=== PATIENT | male | born 1985 | race Caucasian/White ===

== ENCOUNTER 2016-08-21 02:34 | Emergency (ER) | payer OTHER ==
[2016-08-21 02:41] VITALS: TEMP 98
[2016-08-21] MEDS ORDERED: PROPARACAINE 0.5% OPHTH DROPS 15 ML BTL RIGHT EYE STA (03:03)
[2016-08-21] MEDS ORDERED: CIPROFLOXACIN 0.3% OPHTH SOLN 2.5 ML BTL RIGHT EYE STA (03:21)
--- NOTE | 2016-08-21 03:23 | ED ---
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 Patient reports it is a jerzy of paint or metal. He states he can see it in his eye. Patient states that he used to wear contacts, but does not anymore. Patient states that for the past 8 hours his eye has been red and inflamed. Patient states he has no changes in vision. Tetanus shot is up to date. Patient states that he has had things go in his eye before. Patient denies fever, chills , headache, chest pain, shortness of breath, nausea, vomiting, abodminal pain. - Related Data Home Medications Medication Instructions Recorded Confirmed No Known Home Medications [No 08/21/16 08/21/16 Known Home Medications] Allergies Allergy/AdvReac Type Severity Reaction Status Date / Time No Known Allergies Allergy Verified 08/21/16 02:41 Review of Systems ROS Statement: Those systems with pertinent positive or pertinent negative responses have been documented in the HPI. ROS Other: All systems not noted in ROS Statement are negative. Past Medical History Past Medical History: No Reported History History of Any Multi-Drug Resistant Organisms: None Reported Past Surgical History: Cholecystectomy Past Psychological History: No Psychological Hx Reported Smoking Status: Current every day smoker Past Alcohol Use History: None Reported Past Drug Use History: None Reported General Exam - General Exam Comments Initial Comments: Well apperiang pleasant 31 year old male, no distress. Limitations: no limitations General appearance: alert, in no apparent distress Head exam: Present: atraumatic, normocephalic, normal inspection Eye exam: Present: normal appearance, PERRL, EOMI, conjunctival injection ( right eye conjunctival injection. White speck in center of left eye, consistent with paint chip. ). Absent: scleral icterus, periorbital swelling ENT exam: Present: normal exam, mucous membranes moist Neck exam: Present: normal inspection. Absent: tenderness, meningismus, lymphadenopathy Respiratory exam: Present: normal lung sounds bilaterally. Absent: respiratory distress, wheezes, rales, rhonchi, stridor Cardiovascular Exam: Present: regular rate, normal rhythm, normal heart sounds. Absent: systolic murmur, diastolic murmur, rubs, gallop, clicks GI/Abdominal exam: Present: soft, normal bowel sounds. Absent: distended, tenderness, guarding, rebound, rigid Extremities exam: Present: normal inspection, full ROM, normal capillary refill. Absent: tenderness, pedal edema, joint swelling, calf tenderness Back exam: Present: normal inspection Neurological exam: Present: alert, oriented X3, CN II-XII intact Psychiatric exam: Present: normal affect, normal mood Skin exam: Present: warm, dry, intact, normal color. Absent: rash Course Vital Signs 08/21/16 08/21/16 02:39 04:15 Temperature 98 F 98 F Pulse Rate 79 76 Respiratory 16 18 Rate Blood Pressure 139/76 124/60 O2 Sat by Pulse 99 99 Oximetry Medical Decision Making - Medical Decision Making Patient is a 31 year old male with chief compliant of foreign body in right eye. Fluorescien eye exam preformed and white piece of paint is removed with cotton swab. No evidence of corneal abrasion. Discussed avoid contact wear, and wearing safety goggles at work. Patient reports relief, and will be placed on ciprofloxacin eye drops. Discussed follow up with opthalmologist if symptoms continue to persist. Patient agrees with treatment plan and will comply. Disposition Clinical Impression: Foreign body, eye Disposition: HOME SELF-CARE Condition: Good Instructions: Eye Foreign Body (ED) Additional Instructions: Apply antibiotic drops every 4 hours to affected eye. Follow up with plate cutter if symptoms continue persist after one to 2 days. Return to emergency Department if any alarming signs or symptoms occur. Referrals: Rizwana Alex MD [STAFF PHYSICIAN] - 1-2 days Bessie Valadez MD [STAFF PHYSICIAN] - 1-2 days Time of Disposition: 03:21
[2016-08-21 04:16] VITALS: BP 124/60; PULSE 76; RESP 18
== END 2016-08-21 04:16 | disposition home or self-care (01) ==
LOC: MERGE 02:34 → EC 02:34
DX: T15.91XA Foreign body on external eye, part unspecified, right eye, initial encounter (principal); X58.XXXA Exposure to other specified factors, initial encounter; F17.200 Nicotine dependence, unspecified, uncomplicated
CPT/HCPCS: 99283

== ENCOUNTER 2016-10-26 06:10 | Emergency (ER) | payer OTHER ==
[2016-10-26 06:15] VITALS: RESP 18
[2016-10-26] MEDS ORDERED: PROPARACAINE 0.5% OPHTH DROPS 15 ML BTL BOTH EYES STA (06:42)
[2016-10-26] MEDS ORDERED: ERYTHROMYCIN 5 MG/GM OPHTH OINT 3.5 GM TUBE BOTH EYES STA (07:46)
--- NOTE | 2016-10-26 07:50 | ED ---
Eye Problem HPI - General Chief complaint: Eye Problems Stated complaint: Eye Injury Time Seen by Provider: 10/26/16 06:59 Source: patient Mode of arrival: ambulatory Limitations: no limitations - History of Present Illness Initial comments: This patient is a 31-year-old man who presents to be evaluated for burning pain to both eyes. 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 The patient states this is identical to previous episodes of welder oxyhydrogen's flash that he has had. Denies change in his vision. He has had some tearing. States his tetanus shot is up-to-date MD chief complaint: eye pain, eye redness -: hour(s) Onset Description: gradual Location: both eyes Place: home If Injury: UV exposure Eye Symptoms: burning Severity: severe If Pain, Quality: burning Consistency: constant Associated Symptoms: none - Related Data Home Medications Medication Instructions Recorded Confirmed No Known Home Medications [No 08/21/16 08/21/16 Known Home Medications] Previous Rx's Medication Instructions Recorded HYDROcodone/APAP 5-325MG [Shelby 1 each PO Q6HR PRN #20 tab 05/17/14 5-325] Allergies Allergy/AdvReac Type Severity Reaction Status Date / Time No Known Allergies Allergy Verified 10/26/16 06:12 Review of Systems ROS Statement: Those systems with pertinent positive or pertinent negative responses have been documented in the HPI. ROS Other: All systems not noted in ROS Statement are negative. Constitutional: Denies: fever Eyes: Reports: as per HPI, eye pain, eye discharge. Denies: vision change Respiratory: Denies: cough Neurological: Denies: headache Past Medical History Past Medical History: No Reported History History of Any Multi-Drug Resistant Organisms: None Reported Past Surgical History: Cholecystectomy Past Psychological History: No Psychological Hx Reported Smoking Status: Current every day smoker Past Alcohol Use History: None Reported Past Drug Use History: Marijuana General Exam Limitations: no limitations General appearance: alert, in no apparent distress Head exam: Present: atraumatic Eye exam: Present: PERRL, EOMI, conjunctival injection, other (There is some punctate uptake with forcing staining). Absent: scleral icterus, nystagmus, periorbital swelling, periorbital tenderness ENT exam: Present: normal oropharynx Skin exam: Present: warm, dry, intact, normal color. Absent: rash Course Vital Signs 10/26/16 06:13 Temperature 96.9 F L Pulse Rate 77 Respiratory 18 Rate Blood Pressure 125/71 O2 Sat by Pulse 99 Oximetry Disposition Clinical Impression: Welders' keratitis Disposition: HOME SELF-CARE Condition: Good Instructions: Corneal Flash Villalba (ED) Referrals: Marina Millard MD [Primary Care Provider] - 1-2 days Bessie Valadez MD [STAFF PHYSICIAN] - 1-2 days
[2016-10-26 08:13] VITALS: BP 112/61; PULSE 78; TEMP 97
== END 2016-10-26 08:12 | disposition home or self-care (01) ==
LOC: EC 06:10
DX: H16.133 Photokeratitis, bilateral (principal); F17.200 Nicotine dependence, unspecified, uncomplicated; W89.0XXA Exposure to welding light (arc), initial encounter; Y93.89 Activity, other specified; Y92.009 Unspecified place in unspecified non-institutional (private) residence as the place of occurrence of the external cause
CPT/HCPCS: 99283

== ENCOUNTER 2016-12-04 13:17 | Emergency (ER) | payer OTHER ==
[2016-12-04 13:22] VITALS: RESP 18
[2016-12-04] MEDS ORDERED: FAMOTIDINE 20 MG/2 ML VIAL IV STA (13:22)
[2016-12-04] MEDS ORDERED: methylPREDNISolone SOD SUCCI 125 MG/2 ML VIAL IV STA (13:22)
[2016-12-04] MEDS ORDERED: diphenhydrAMINE 50 MG/ML 1 ML VIAL IVP STA (13:22)
[2016-12-04] MEDS ORDERED: SODIUM CHLORIDE 0.9% 1,000 ML IV STA ×2 (13:23→13:24)
[2016-12-04] MEDS ORDERED: IPRATROPIUM-ALBUTEROL 3 ML NEB INHALATION STA (13:24)
[2016-12-04] MEDS ORDERED: EPINEPHrine 1 MG/ML 1 ML AMP IM STA (13:30)
[2016-12-04 14:34] VITALS: PULSE 85
[2016-12-04 15:25] VITALS: BP 105/53
--- NOTE | 2016-12-04 15:25 | ED ---
Allergic Reaction HPI - General Chief complaint: Allergic Reaction Stated complaint: Allergic Reaction/Bee Time Seen by Provider: 12/04/16 13:22 Source: patient Mode of arrival: ambulatory Limitations: no limitations - History of Present Illness Initial Comments: This 31-year-old white male presents with a complaint of an ALLERGIC reaction due to a bee sting. This occurred a couple hours prior to arrival. He states that he was stung right above his right eyebrow. He developed diffuse rash throughout his body. He denies any syncope or presyncope. He states that he took his EpiPen which has been for 4 years shortly prior to coming in. He has a rash with diffuse erythema throughout as well as some pruritus. He denies any throat tightness or difficulty in breathing. He states that he has had previous significant reactions to bee stings in the past. No other complaints or modifying factors. - Related Data Home Medications Medication Instructions Recorded Confirmed Acyclovir [Zovirax] 800 mg PO DAILY 12/04/16 12/04/16 Previous Rx's Medication Instructions Recorded EPINEPHrine [Epipen 2-Alfonso] 0.3 mg IJ ONCE PRN #1 auto.injct 12/04/16 Famotidine [Pepcid] 20 mg PO BID #6 tablet 12/04/16 diphenhydrAMINE HCL [Benadryl] 1 - 2 mg PO Q6H PRN #20 tab 12/04/16 predniSONE 20 mg PO BID #6 tab 12/04/16 Allergies Allergy/AdvReac Type Severity Reaction Status Date / Time No Known Allergies Allergy Verified 12/04/16 14:07 Review of Systems ROS Statement: Those systems with pertinent positive or pertinent negative responses have been documented in the HPI. ROS Other: All systems not noted in ROS Statement are negative. Past Medical History Past Medical History: No Reported History History of Any Multi-Drug Resistant Organisms: None Reported Past Surgical History: Cholecystectomy Past Psychological History: No Psychological Hx Reported Smoking Status: Current every day smoker Past Alcohol Use History: None Reported Past Drug Use History: Marijuana General Exam - General Exam Comments Initial Comments: GENERAL: The patient is well nourished and well hydrated. VITAL SIGNS: Heart rate, blood pressure, respiratory rate reviewed as recorded in nurse's notes. EYES: Pupils are round and reactive. Extraocular movements are intact. No conjunctival / lid redness or swelling. ENT: No external evidence of injury, swelling, or ecchymosis. Airway is patent. Throat is clear. NECK: Nontender. No swelling or evidence of injury. No subcutaneous emphysema. Trachea is midline. No thyroid mass. HEART: Regular rate and rhythm. Good peripheral pulses. LUNGS/CHEST: Breath sounds clear and equal bilaterally. No rales, rhonchi, or wheezes. No ecchymosis, subcutaneous emphysema, or tenderness. ABDOMEN: Abdomen soft without tenderness. No palpable masses or organomegaly. No peritoneal signs. No abdominal wall swelling or ecchymosis. EXTREMITIES: No extremity tenderness. Normal muscle tone and function. No thoracolumbar tenderness. NEUROLOGIC: Sensation is grossly intact. Cranial nerve exam reveals face is symmetrical, tongue is midline, speech is clear. SKIN: There is a diffuse erythematous rash throughout his body PSYCHIATRIC: Alert and oriented. Appropriate behavior and judgment. Limitations: no limitations Course Vital Signs 12/04/16 12/04/16 12/04/16 13:19 13:49 13:59 Temperature 97.0 F L Pulse Rate 108 H 93 85 Respiratory 18 18 Rate Blood Pressure 140/63 101/55 O2 Sat by Pulse 96 99 Oximetry 12/04/16 12/04/16 12/04/16 14:06 14:33 15:24 Temperature Pulse Rate 87 85 85 Respiratory 18 18 Rate Blood Pressure 106/54 105/53 O2 Sat by Pulse 95 95 Oximetry Medical Decision Making - Medical Decision Making The patient was seen and examined. An IV was started and he is hydrated. He received IV Solu-Medrol, IV Benadryl, and IV Pepcid. He also received a DuoNeb breathing treatment and intramuscular epinephrine. He is sleeping on recheck and in no distress. His rash has significantly improved there is only a scant remainder of the rash. There is no difficulty in breathing on recheck. It is felt as though he is stable for discharge home. He is counseled regarding his diagnosis and return parameters in detail leaves in no distress. Disposition Clinical Impression: Allergic reaction, Bee sting, Anaphylactic reaction Disposition: HOME SELF-CARE Condition: Good Instructions: Insect Bite or Sting (ED), Anaphylaxis (ED) Prescriptions: diphenhydrAMINE HCL [Benadryl] 1 - 2 mg PO Q6H PRN #20 tab PRN Reason: Rash EPINEPHrine [Epipen 2-Alfonso] 0.3 mg IJ ONCE PRN #1 auto.injct PRN Reason: bee sting/anaphylaxis Famotidine [Pepcid] 20 mg PO BID #6 tablet predniSONE 20 mg PO BID #6 tab Referrals: Marina Millard MD [Primary Care Provider] - 1-2 days Time of Disposition: 15:36
[2016-12-04 15:51] VITALS: TEMP 97.8
== END 2016-12-04 15:51 | disposition home or self-care (01) ==
LOC: EC 13:17
DX: T63.441A Toxic effect of venom of bees, accidental (unintentional), initial encounter (principal); F17.200 Nicotine dependence, unspecified, uncomplicated; Z79.899 Other long term (current) drug therapy
CPT/HCPCS: 99283; 96374; 96375 ×2; 96361 ×2; 96372; 94640; J0171; J1200; J2930

== ENCOUNTER 2017-10-14 06:27 | Emergency (ER) | payer OTHER ==
[2017-10-14 06:33] VITALS: BP 144/80; PULSE 70; RESP 16; TEMP 98
[2017-10-14] MEDS ORDERED: IBUPROFEN 800 MG TAB PO STA (06:51)
[2017-10-14] MEDS ORDERED: PENICILLIN VK 500MG STARTER 4 TAB BTL PO STA (06:51)
[2017-10-14] MEDS ORDERED: DEXAMETHASONE SOD PHOSPHATE 10 MG/ML 1 ML VIAL IM STA (06:51)
[2017-10-14] MEDS ORDERED: ACETAMINOPHEN TAB 500 MG TAB PO STA (06:51)
[2017-10-14] MEDS ORDERED: PENICILLIN V POTASSIUM 250 MG TAB PO STA (06:51)
--- NOTE | 2017-10-14 06:53 | ED ---
General Adult HPI - General Chief complaint: Dental/Oral Stated complaint: ENT Time Seen by Provider: 10/14/17 06:36 Source: patient, RN notes reviewed, old records reviewed Limitations: no limitations - History of Present Illness Initial comments: This is a 32-year-old male the ER for evasive dental pain. Patient has history of severe dental caries. Patient has no modifying factors for pain, does have mild swelling to the anterior lip. Patient states he does have a dentist will follow-up this week. But he states the infection and the pain is getting out of control. No modifying factors for pain. Patient states he does want return to work - Related Data Home Medications Medication Instructions Recorded Confirmed Acyclovir [Zovirax] 800 mg PO DAILY 12/04/16 12/04/16 Previous Rx's Medication Instructions Recorded EPINEPHrine [Epipen 2-Alfonso] 0.3 mg IJ ONCE PRN #1 auto.injct 12/04/16 Famotidine [Pepcid] 20 mg PO BID #6 tablet 12/04/16 diphenhydrAMINE HCL [Benadryl] 1 - 2 mg PO Q6H PRN #20 tab 12/04/16 predniSONE 20 mg PO BID #6 tab 12/04/16 Naproxen [Naprosyn] 500 mg PO Q12HR PRN #30 tab 10/14/17 Penicillin V Potassium [Pen Vee K] 500 mg PO QID #40 tablet 10/14/17 Allergies Allergy/AdvReac Type Severity Reaction Status Date / Time No Known Allergies Allergy Verified 10/14/17 06:33 Review of Systems ROS Statement: Those systems with pertinent positive or pertinent negative responses have been documented in the HPI. ROS Other: All systems not noted in ROS Statement are negative. Past Medical History Past Medical History: No Reported History History of Any Multi-Drug Resistant Organisms: None Reported Past Surgical History: Cholecystectomy Past Psychological History: No Psychological Hx Reported Smoking Status: Current every day smoker Past Alcohol Use History: None Reported Past Drug Use History: Marijuana General Exam Limitations: no limitations General appearance: alert, in no apparent distress Head exam: Present: atraumatic, normocephalic, normal inspection Eye exam: Present: normal appearance, PERRL, EOMI. Absent: scleral icterus, conjunctival injection, periorbital swelling ENT exam: Present: normal exam, mucous membranes moist Neck exam: Present: normal inspection. Absent: tenderness, meningismus, lymphadenopathy Respiratory exam: Present: normal lung sounds bilaterally. Absent: respiratory distress, wheezes, rales, rhonchi, stridor Cardiovascular Exam: Present: regular rate, normal rhythm, normal heart sounds. Absent: systolic murmur, diastolic murmur, rubs, gallop, clicks GI/Abdominal exam: Present: soft, normal bowel sounds. Absent: distended, tenderness, guarding, rebound, rigid Extremities exam: Present: normal inspection, full ROM, normal capillary refill. Absent: tenderness, pedal edema, joint swelling, calf tenderness Back exam: Present: normal inspection Neurological exam: Present: alert, oriented X3, CN II-XII intact Psychiatric exam: Present: normal affect, normal mood Skin exam: Present: warm, dry, intact, normal color. Absent: rash Course Vital Signs 10/14/17 06:30 Temperature 98 F Pulse Rate 70 Respiratory 16 Rate Blood Pressure 144/80 O2 Sat by Pulse 97 Oximetry Medical Decision Making - Medical Decision Making 32 male the ER with positive dental infection history of severe dental caries, will follow-up with a dentist in the future Disposition Clinical Impression: Dental abscess, Toothache Disposition: ADMITTED IP TO THIS HOSP Condition: Good Instructions: Dental Abscess (ED), Dental Caries (ED) Prescriptions: Naproxen [Naprosyn] 500 mg PO Q12HR PRN #30 tab PRN Reason: Pain Penicillin V Potassium [Pen Vee K] 500 mg PO QID #40 tablet Is patient prescribed a controlled substance at d/c from ED?: No Referrals: Marina Millard MD [Primary Care Provider] - 1-2 days
== END 2017-10-14 07:13 | disposition other institution (70) ==
LOC: EC 06:27
DX: K04.7 Periapical abscess without sinus (principal); F17.200 Nicotine dependence, unspecified, uncomplicated
CPT/HCPCS: 99283; 96372; J1100

== ENCOUNTER 2019-12-13 13:49 | Emergency (ER) | payer BC, OTHER ==
[2019-12-13 14:07] VITALS: BP 116/75; PULSE 80; RESP 18; TEMP 98.4
--- NOTE | 2019-12-13 14:58 | XR ---
Lumbar spine HISTORY: Trauma and pain 3 views the lumbar spine Lumbar vertebral bodies show preserved height, alignment, and bone mineralization. Disc spaces are ma intained with some mild disc height loss questioned at L3-4. Mild multilevel spondylosis is noted. Ap ical clips are present right upper quadrant. IMPRESSION: No fracture or subluxation. Mild degenerative disc disease.
[2019-12-13] MEDS ORDERED: ACET/COD 300 MG/30 MG STARTER PACK 6 TAB BTL PO STA (15:13)
--- NOTE | 2019-12-13 15:13 | ED ---
Back Pain HPI - General Chief Complaint: Back Pain/Injury Stated Complaint: Back Pain Time Seen by Provider: 12/13/19 14:25 Source: patient Limitations: no limitations - History of Present Illness Initial Comments: 34-year-old male presenting today for chief complaint of low back pain. Patient states about work he went to step up on a stair when he fell backwards onto a soft area of tubing he states he did not fall hard states he began experiencing low back pain since he experiences back pain that feels similar in the past. He states it began radiating somewhat down his right leg the next day. Patient denies any loss sensation weakness of the lower extremities he denies any loss of bowel bladder control urinary retention denies any fevers IV drug use or history of cancer. Patient denies any erectile dysfunction or numbness of the perineum. Patient has no additional complaints. Upon arrival patient ambulatory he does not appear in acute distress. - Related Data Home Medications Medication Instructions Recorded Confirmed Acyclovir [Zovirax] 800 mg PO DAILY 12/04/16 12/04/16 Previous Rx's Medication Instructions Recorded EPINEPHrine [Epipen 2-Alfonso] 0.3 mg IJ ONCE PRN #1 auto.injct 12/04/16 Famotidine [Pepcid] 20 mg PO BID #6 tablet 12/04/16 diphenhydrAMINE HCL [Benadryl] 1 - 2 mg PO Q6H PRN #20 tab 12/04/16 predniSONE [Deltasone] 20 mg PO BID #6 tab 12/04/16 Naproxen [Naprosyn] 500 mg PO Q12HR PRN #30 tab 10/14/17 Penicillin V Potassium [Pen Vee K] 500 mg PO QID #40 tablet 10/14/17 predniSONE 50 mg PO DAILY 3 Days #3 tab 12/13/19 Allergies Allergy/AdvReac Type Severity Reaction Status Date / Time No Known Allergies Allergy Verified 12/13/19 14:07 Review of Systems ROS Statement: Those systems with pertinent positive or pertinent negative responses have been documented in the HPI. ROS Other: All systems not noted in ROS Statement are negative. Past Medical History Past Medical History: No Reported History History of Any Multi-Drug Resistant Organisms: None Reported Past Surgical History: Cholecystectomy Past Psychological History: No Psychological Hx Reported Smoking Status: Current every day smoker Past Alcohol Use History: None Reported Past Drug Use History: Marijuana General Exam - General Exam Comments Initial Comments: General: The patient is awake and alert, in no distress, and does not appear acutely ill. Eye: Pupils are equal, round and reactive to light, extra-ocular movements are intact. No nystagmus. There is normal conjunctiva bilaterally. No signs of icterus. Cardiovascular: There is a regular rate and rhythm. No murmur, rub or gallop is appreciated. Respiratory: Lungs are clear to auscultation, respirations are non-labored, breath sounds are equal. No wheezes, stridor, rales, or rhonchi. Musculoskeletal: no skin changes. Atraumatic tenderness palpable over the lower lumbar spine. Some mild midline tenderness but mostly paravertebral. Normal ROM, of the lower extremity bilaterally. Negative straight leg raise bilaterally Strength 5/5 of the lower extremity bilaterally.. Sensation intact of the lower extremities including the saddle region. Refused rectal examination. +2/5 patellar DTR. Pulses equal bilaterally 2+. Ambulatory. Neurological: A&O x 3. CN II-XII intact grossly, There are no obvious motor or sensory deficits. Coordination appears grossly intact. Speech is normal. Skin: Skin is warm and dry and no rashes or lesions are noted. Psychiatric: Cooperative, appropriate mood & affect, normal judgment. Limitations: no limitations Course Vital Signs 12/13/19 14:05 Temperature 98.4 F Pulse Rate 80 Respiratory 18 Rate Blood Pressure 116/75 O2 Sat by Pulse 98 Oximetry Medical Decision Making - Medical Decision Making 34-year-old male presented for low back pain radiates down right leg. X-ray negative this patient's history of what he described as a "soft fall" patient neurovascularly intact refuse rectal examination denies any weakness or sensation deficits of the lower extremities denies urinary or bowel changes. Patient will be treated symptomatically and recommended close PCP f/u. For persistent symptoms recommend outpatient MRI and orthopedic f/u wtih was provided. Patient discharged appearing well. Disposition Clinical Impression: Low back pain, Radiculopathy Disposition: HOME SELF-CARE Condition: Good Instructions (If sedation given, give patient instructions): Acute Low Back Pain (ED) Additional Instructions: Please use medication as discussed. Please follow-up with family doctor in the next 2 days. Recommend immediate return for leg weakness, loss of sensation of legs, inner thigh, erectile dysfunction, inability to urinate or loss of bowel control/bladder controll. Please return to emergency room if the symptoms increase or worsen or for any other concerns. Prescriptions: predniSONE 50 mg PO DAILY 3 Days #3 tab Is patient prescribed a controlled substance at d/c from ED?: No Referrals: Gerda Schmidt DO [Primary Care Provider] - 1-2 days [facility] [NON-STAFF] - 1-2 days Leelee Ambrosio DO [Doctor of Osteopathic Medicine] - 1-2 days Time of Disposition: 15:13
== END 2019-12-13 15:37 | disposition home or self-care (01) ==
LOC: EC 13:49
DX: M54.16 Radiculopathy, lumbar region (principal); F17.200 Nicotine dependence, unspecified, uncomplicated
CPT/HCPCS: 72100; 99283

== ENCOUNTER 2021-07-17 23:51 | Emergency (ER) | payer BC, OTHER ==
[2021-07-18 00:07] VITALS: BP 124/81; PULSE 84; RESP 19; TEMP 99.4
[2021-07-18 01:20] LABS: Basophils # (A) 0.1 k/uL (0-0.2); Basophils % (A) 1 %; Eosinophils # (A) 0.6 k/uL (0-0.7); Eosinophils % (A) 4 %; HCT 49.3 % (39.0-53.0); Lymphocytes # (A) 2.4 k/uL (1.0-4.8); Lymphocytes % (A) 16 %; MCH 28.9 pg (25.0-35.0); MCHC 32.4 g/dL (31.0-37.0); MCV 89.2 fL (80.0-100.0); Mean Platelet Volume 7.3; Monocytes # (A) 0.7 k/uL (0-1.0); Monocytes % (A) 5 %; Neutrophils # (A) 11.4 k/uL (1.3-7.7); Neutrophils % (A) 75 %; Platelet Count 252 k/uL (150-450); RBC 5.53 m/uL (4.30-5.90); RDW 13.3 % (11.5-15.5); WBC 15.3 k/uL (3.8-10.6)
[2021-07-18 01:29] LABS: ALT 26 U/L (4-49); AST 23 U/L (17-59); African American GFR (CKD) >90 (>60 ml/min/1.73 sqM); Alkaline Phosphatase 79 U/L (38-126); Amylase 44 U/L (30-110); Anion Gap 8 mmol/L; Appearance,Urine Clear (Clear); Bilirubin,Urine Negative (Negative); Blood Urea Nitrogen 15 mg/dL (9-20); Blood,Urine Small (Negative); Calcium 9.3 mg/dL (8.4-10.2); Carbon Dioxide 29 mmol/L (22-30); Chloride 101 mmol/L (98-107); Color,Urine Yellow; Glucose 104 mg/dL (74-99); Glucose,Urine (UA) Negative (Negative); Ketones,Urine Negative (Negative); Leukocyte Esterase,Urine Negative (Negative); Lipase 61 U/L (23-300); Mucus,Urine Rare /hpf; Nitrite,Urine Negative (Negative); Non-African American GFR(CKD) 86 (>60 ml/min/1.73 sqM); Potassium 4.3 mmol/L (3.5-5.1); Protein,Urine Negative (Negative); RBC,Urine 1 /hpf (0-5); Sodium 138 mmol/L (137-145); Specific Gravity,Urine 1.025 (1.001-1.035); Total Bilirubin 0.5 mg/dL (0.2-1.3); Total Protein 7.5 g/dL (6.3-8.2); Urobilinogen,Urine <2.0 mg/dL (<2.0); WBC,Urine <1 /hpf (0-5)
--- NOTE | 2021-07-18 02:01 | ED ---
Abdominal Pain HPI - General Chief Complaint: Abdominal Pain Stated Complaint: Abdominal Pain Time Seen by Provider: 07/18/21 01:29 Source: patient Mode of arrival: ambulatory - History of Present Illness Initial Comments: This patient is 36-year-old man presenting to have evaluation of lower abdominal pain. 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 It is across the lower abdomen. He describes it as if someone had put a knife and cut him. The patient has noticed worsening or relieving factors. He did have a bowel movement without much relief. Patient states that it is similar to pain he had as a teenager when they took his gallbladder out. MD Complaint: abdominal pain Onset/Timin -: hour(s) Location: LLQ, RLQ, suprapubic Radiation: none Migration to: no migration Severity: moderate Quality: sharp Consistency: constant Improves With: nothing Worsens With: nothing Associated Symptoms: nausea - Related Data Home Medications Medication Instructions Recorded Confirmed Acyclovir [Zovirax] 800 mg PO DAILY 12/04/16 12/04/16 Previous Rx's Medication Instructions Recorded EPINEPHrine [Epipen 2-Alfonso] 0.3 mg IJ ONCE PRN #1 auto.injct 12/04/16 Famotidine [Pepcid] 20 mg PO BID #6 tablet 12/04/16 diphenhydrAMINE HCL [Benadryl] 1 - 2 mg PO Q6H PRN #20 tab 12/04/16 predniSONE [Deltasone] 20 mg PO BID #6 tab 12/04/16 Naproxen [Naprosyn] 500 mg PO Q12HR PRN #30 tab 10/14/17 Penicillin V Potassium [Pen Vee K] 500 mg PO QID #40 tablet 10/14/17 predniSONE 50 mg PO DAILY 3 Days #3 tab 12/13/19 Amoxicillin/Potassium Clav 1 tab PO Q12HR 1 Days #14 tab 07/18/21 [Augmentin 875-125 Tablet] Allergies Allergy/AdvReac Type Severity Reaction Status Date / Time No Known Allergies Allergy Verified 07/18/21 00:07 Review of Systems ROS Statement: Those systems with pertinent positive or pertinent negative responses have been documented in the HPI. ROS Other: All systems not noted in ROS Statement are negative. Constitutional: Denies: fever, chills Respiratory: Denies: cough, dyspnea Cardiovascular: Denies: chest pain, palpitations Gastrointestinal: Reports: abdominal pain, nausea. Denies: vomiting, diarrhea, constipation, melena, hematochezia Genitourinary: Denies: dysuria, frequency, hematuria, testicular pain, testicu lar mass Musculoskeletal: Denies: back pain Skin: Denies: rash Neurological: Denies: headache Past Medical History Past Medical History: No Reported History History of Any Multi-Drug Resistant Organisms: None Reported Past Surgical History: Cholecystectomy Past Psychological History: No Psychological Hx Reported Smoking Status: Current every day smoker Past Alcohol Use History: None Reported Past Drug Use History: Marijuana General Exam General appearance: alert, in no apparent distress Head exam: Present: atraumatic, normocephalic Eye exam: Present: normal appearance. Absent: scleral icterus, conjunctival injection Neck exam: Present: normal inspection Respiratory exam: Present: normal lung sounds bilaterally. Absent: respiratory distress, wheezes, rales, rhonchi, stridor Cardiovascular Exam: Present: regular rate, normal rhythm, normal heart sounds. Absent: systolic murmur, diastolic murmur, rubs, gallop GI/Abdominal exam: Present: soft, tenderness (Lower abdominal tenderness without rebound or guarding). Absent: distended, guarding, rebound, rigid, mass, pulsatile mass, hernia Extremities exam: Present: normal inspection, normal capillary refill. Absent: pedal edema, calf tenderness Back exam: Present: normal inspection. Absent: CVA tenderness (R), CVA tenderness (L) Neurological exam: Present: alert Skin exam: Present: warm, dry, intact, normal color. Absent: rash Course Vital Signs 07/18/21 00:03 Temperature 99.4 F Pulse Rate 84 Respiratory 19 Rate Blood Pressure 124/81 O2 Sat by Pulse 97 Oximetry Medical Decision Making - Lab Data Result diagrams: 07/18/21 01:06 07/18/21 01:06 Lab Results 07/18/21 07/18/21 07/18/21 Range/Units 01:06 01:06 01:06 WBC 15.3 H (3.8-10.6) k/uL RBC 5.53 (4.30-5.90) m/uL Hgb 16.0 (13.0-17.5) gm/dL Hct 49.3 (39.0-53.0) % MCV 89.2 (80.0-100.0) fL MCH 28.9 (25.0-35.0) pg MCHC 32.4 (31.0-37.0) g/dL RDW 13.3 (11.5-15.5) % Plt Count 252 (150-450) k/uL MPV 7.3 Neutrophils % 75 % Lymphocytes % 16 % Monocytes % 5 % Eosinophils % 4 % Basophils % 1 % Neutrophils # 11.4 H (1.3-7.7) k/uL Lymphocytes # 2.4 (1.0-4.8) k/uL Monocytes # 0.7 (0-1.0) k/uL Eosinophils # 0.6 (0-0.7) k/uL Basophils # 0.1 (0-0.2) k/uL Sodium 138 (137-145) mmol/L Potassium 4.3 (3.5-5.1) mmol/L Chloride 101 (98-107) mmol/L Carbon Dioxide 29 (22-30) mmol/L Anion Gap 8 mmol/L BUN 15 (9-20) mg/dL Creatinine 1.10 (0.66-1.25) mg/dL Est GFR (CKD-EPI)AfAm >90 (>60 ml/min/1.73 sqM) Est GFR (CKD-EPI)NonAf 86 (>60 ml/min/1.73 sqM) Glucose 104 H (74-99) mg/dL Plasma Lactic Acid Roberto (0.7-2.0) mmol/L Calcium 9.3 (8.4-10.2) mg/dL Total Bilirubin 0.5 (0.2-1.3) mg/dL AST 23 (17-59) U/L ALT 26 (4-49) U/L Alkaline Phosphatase 79 (38-126) U/L Total Protein 7.5 (6.3-8.2) g/dL Albumin 4.0 (3.5-5.0) g/dL Amylase 44 (30-110) U/L Lipase 61 (23-300) U/L Urine Color Yellow Urine Appearance Clear (Clear) Urine pH 5.0 (5.0-8.0) Ur Specific [place] 1.025 (1.001-1.035) Urine Protein Negative (Negative) Urine Glucose (UA) Negative (Negative) Urine Ketones Negative (Negative) Urine Blood Small H (Negative) Urine Nitrite Negative (Negative) Urine Bilirubin Negative (Negative) Urine Urobilinogen <2.0 (<2.0) mg/dL Ur Leukocyte Esterase Negative (Negative) Urine RBC 1 (0-5) /hpf Urine WBC <1 (0-5) /hpf Urine Mucus Rare H (None) /hpf 07/18/21 Range/Units 01:06 WBC (3.8-10.6) k/uL RBC (4.30-5.90) m/uL Hgb (13.0-17.5) gm/dL Hct (39.0-53.0) % MCV (80.0-100.0) fL MCH (25.0-35.0) pg MCHC (31.0-37.0) g/dL RDW (11.5-15.5) % Plt Count (150-450) k/uL MPV Neutrophils % % Lymphocytes % % Monocytes % % Eosinophils % % Basophils % % Neutrophils # (1.3-7.7) k/uL Lymphocytes # (1.0-4.8) k/uL Monocytes # (0-1.0) k/uL Eosinophils # (0-0.7) k/uL Basophils # (0-0.2) k/uL Sodium (137-145) mmol/L Potassium (3.5-5.1) mmol/L Chloride (98-107) mmol/L Carbon Dioxide (22-30) mmol/L Anion Gap mmol/L BUN (9-20) mg/dL Creatinine (0.66-1.25) mg/dL Est GFR (CKD-EPI)AfAm (>60 ml/min/1.73 sqM) Est GFR (CKD-EPI)NonAf (>60 ml/min/1.73 sqM) Glucose (74-99) mg/dL Plasma Lactic Acid Roberto 1.2 (0.7-2.0) mmol/L Calcium (8.4-10.2) mg/dL Total Bilirubin (0.2-1.3) mg/dL AST (17-59) U/L ALT (4-49) U/L Alkaline Phosphatase (38-126) U/L Total Protein (6.3-8.2) g/dL Albumin (3.5-5.0) g/dL Amylase (30-110) U/L Lipase (23-300) U/L Urine Color Urine Appearance (Clear) Urine pH (5.0-8.0) Ur Specific [place] (1.001-1.035) Urine Protein (Negative) Urine Glucose (UA) (Negative) Urine Ketones (Negative) Urine Blood (Negative) Urine Nitrite (Negative) Urine Bilirubin (Negative) Urine Urobilinogen (<2.0) mg/dL Ur Leukocyte Esterase (Negative) Urine RBC (0-5) /hpf Urine WBC (0-5) /hpf Urine Mucus (None) /hpf Disposition Clinical Impression: Diverticulitis Disposition: HOME SELF-CARE Condition: Good Prescriptions: Amoxicillin/Potassium Clav [Augmentin 875-125 Tablet] 1 tab PO Q12HR 1 Days #14 tab Is patient prescribed a controlled substance at d/c from ED?: No Referrals: Mike Jang MD [Primary Care Provider] - 1-2 days
--- NOTE | 2021-07-18 02:41 | CT ---
EXAMINATION TYPE: CT abdomen pelvis wo con DATE OF EXAM: 07/18/2021 COMPARISON: 12/05/2011 HISTORY: pain CT DLP: 737.4 mGycm Automated exposure control for dose reduction was used. Images obtained from the diaphragm to the floor the pelvis with no contrast. Lung bases are clear. There is no pleural effusion. Heart size is normal. There is no pericardial eff usion. Liver spleen and stomach pancreas appear intact. The bowel is nondilated. There are clips from cholec ystectomy. There is no adrenal mass. Kidneys show normal size and contour. There is no hydronephrosis. Ureters a re not dilated. There is no retroperitoneal adenopathy. The appendix appears normal. There is mild wall thickening and fat stranding around the proximal sigmoid colon. There is sigmoid s cattered diverticula. The lumbar vertebrae have normal alignment. There is no compression fracture. Posterior elements are intact. Disc spaces are normal. Bony pelvis is intact. The hip joints are intact. IMPRESSION: There is sigmoid diverticulitis with scattered sigmoid diverticula. No drainable fluid collection. Normal appendix. Diverticulitis appears new compared to old exam.
[2021-07-18] MEDS ORDERED: AMPICILLIN-SULBACTAM 3 GM in SODIUM CHLORIDE 0.9% 100 ML IVPB STA (03:24)
[2021-07-18] MEDS ORDERED: MORPHINE SULFATE 4 MG/ML SYRINGE IV STA (04:43)
== END 2021-07-18 05:06 | disposition home or self-care (01) ==
LOC: EC 23:51
DX: K57.32 Diverticulitis of large intestine without perforation or abscess without bleeding (principal); F17.200 Nicotine dependence, unspecified, uncomplicated; F12.90 Cannabis use, unspecified, uncomplicated; Z90.49 Acquired absence of other specified parts of digestive tract
CPT/HCPCS: 99284; 96365; 96375; 36415; 80053; 82150; 83605; 83690; 85025; 81001; 74176; J2270; J0295